=== PATIENT | female | born 1970 | race Caucasian/White ===

== ENCOUNTER → 2017-02-16 | Outpatient (CLI) | payer OTHER ==
[~2017-02-16] MED LIST: HYDR-5688 PO; WARF5TAB90 PO
--- NOTE | 2017-02-16 18:41 | DIAGNOSTIC IMAGING REPORT ---
MRI OF THE RIGHT ANKLE WITHOUT IV CONTRAST CLINICAL HISTORY: Right ankle pain. Tendinitis. COMPARISON STUDY: Radiographs of the right foot dated 09/26/2016. TECHNIQUE: MRI of the right ankle is performed using various T1 and T2-weighted sequences in the axial, sagittal, coronal planes. IV contrast was not administered for this examination. FINDINGS: There is no MRI evidence of fracture involving the right ankle. There are mild foci of marrow edema identified within the talar dome as well as the medial aspect of the talus typical in appearance for degenerative change. Mild arthritic change is also seen within the superior calcaneus. There is no ankle joint effusion. An os trigonum is incidentally noted. The Achilles tendon appears mildly thickened and is normal in signal intensity. There is mild fluid posterior to the Achilles tendon. The tibialis posterior tendon is markedly thickened consistent with tendinopathy. There is surrounding fluid consistent with tenosynovitis. There is high-grade partial-thickness tearing of the tibialis posterior tendon as it crosses the ankle joint. There is surrounding soft tissue edema. The flexor hallucis longus and flexor digitorum longus tendons appear intact. The peroneal tendons appear maintained. The anterior tendons also appear intact. There is mild fluid around the proximal tibialis anterior suggesting tendinitis. There has been age indeterminant rupture of the anterior talofibular and anterior tibiofibular ligaments. There is thickening of the medial band of the partially imaged plantar fascia with surrounding edema consistent with plantar fasciitis. There is mild marrow edema identified within the adjacent calcaneus as well as a large plantar heel spur. There is evidence of normal fat within the sinus tarsi. The deltoid ligament is intact as imaged. IMPRESSION: 1. There is tendinopathy and tendonitis involving the tibialis posterior tendon with high-grade partial-thickness tearing as it crosses the ankle joint. Some fibers appear to remain intact. Overlying soft tissue edema is observed. 2. There is also likely mild tendonitis involving the tibialis anterior tendon. 3. Question mild Achilles tendinopathy and paratenonitis. Clinical correlation will be required. 4. There is evidence of plantar fasciitis involving the medial band of the plantar fascia. A large plantar heel spur is noted. 5. Arthritic change with mild marrow edema is noted in the talus and calcaneus. 6. There is age indeterminant and likely chronic tearing of the anterior talofibular and anterior tibiofibular ligaments. Dictated: 02/16/2017 4:47 PM Transcribed: 02/16/2017 6:40 PM [email or web address] Electronically signed by: Oral Miller M.D. 02/16/2017 6:45 PM Dictated Date/Time: 02/16/2017 4:47 PM
== END | disposition home or self-care (01) ==
LOC: C.MRI 14:58
PROVIDERS: ATTEND Podiatrist
DX: M76.821 Posterior tibial tendinitis, right leg (principal); M79.671 Pain in right foot; M21.41 Flat foot [pes planus] (acquired), right foot; M77.31 Calcaneal spur, right foot; M19.071 Primary osteoarthritis, right ankle and foot; S93.491A Sprain of other ligament of right ankle, initial encounter; S93.431A Sprain of tibiofibular ligament of right ankle, initial encounter; X58.XXXA Exposure to other specified factors, initial encounter

== ENCOUNTER 2024-09-21 06:37 | Observation (INO) ==
--- NOTE | 2024-08-16 10:07 | PAT Medication Instructions ---
Medication Instructions Date of Service August 16, 2024 Home Medications acetaminophen 325 mg tablet 325 mg PO QID PRN ibuprofen 200 mg capsule 200 mg PO Q6H PRN naproxen sodium 220 mg tablet (Aleve) 220 mg PO BID PRN semaglutide 0.25 mg or 0.5 mg (2 mg/3 mL) subcutaneous pen injector (Ozempic) 0.5 mg subcut WK STOP 7 days before surgery semaglutide 0.25 mg or 0.5 mg (2 mg/3 mL) subcutaneous pen injector (Ozempic) 0.5 mg subcut WK ASK your surgeon for instructions ibuprofen 200 mg capsule 200 mg PO Q6H PRN naproxen sodium 220 mg tablet (Aleve) 220 mg PO BID PRN Take morning of surgery With a small sip of water, OTHERWISE NOTHING TO EAT OR DRINK AFTER MIDNIGHT: acetaminophen 325 mg tablet 325 mg PO QID PRN(if needed) Take evening before surgery acetaminophen 325 mg tablet 325 mg PO QID PRN(if needed) Other Notes If you have any questions please call us at [phone] or [phone] or [phone] or [phone]
--- NOTE | 2024-08-22 10:00 | Anesthesiology Consultation ---
Date of Service August 22, 2024 Assessment & Plan (1) Encounter for pre-operative examination: - check urine test STAT am DOS. - awaiting PCP pre-operative evaluation (Dr. Lauren Lawrence) 09/05/24. PAT testing to be faxed to PCP. - semaglutide instructions: Patient informed at PAT visit to stop 7 days prior to surgery- voiced understanding. - Outpatient joint assessment: Patient is currently scheduled for inpatient pathway. If re-evaluated and patient/surgeon requests outpatient pathway, patient is not ideal candidate for outpatient joint program from anesthesia standpoint. Chart Review Chart Review: Pending: Refer to Additional Notes / Consult section and Patient seen in Pre Admission Testing Teaching & Discussion Pre-Anesthesia Teaching/Discussion Notes: Instructed NPO after midnight before surgery, except medications with 15 cc of water. Medication instructions provided according to the PAT guidelines. History Surgery Operation Date: 09/21/24 07:00 Proposed Procedures p Left Total Knee Arthroplasty - Bobo Torres MD Height/Weight Height: 5 ft 8 in Weight: 130.9 kg Allergies Allergy/AdvReac Type Severity Reaction Status Date / Time No Known Allergies Allergy Unverified 08/15/24 14:02 Medications Home Medications Medication Instructions Recorded Confirmed Last Taken acetaminophen 325 mg tablet 325 mg PO QID PRN Pain 08/15/24 08/15/24 Unknown ibuprofen 200 mg capsule 200 mg PO Q6H PRN Pain 08/15/24 08/15/24 Unknown naproxen sodium 220 mg tablet 220 mg PO BID PRN Pain 08/15/24 08/15/24 Unknown (Aleve) semaglutide 0.25 mg or 0.5 mg (2 0.5 mg subcut WK 08/15/24 08/15/24 Unknown mg/3 mL) subcutaneous pen injector (Ozempic) Past Medical History Medical History (Updated 08/22/24 @ 10:27 by Ada Sinclair PA-C) Hearing loss [id number] TM from infection years ago History of hypertension controlled, stable per pt Hx of deep venous thrombosis (~2014) 2015 right LE, 2 days after hammer toe correction, had also flown 2 weeks prior Hx of diverticulitis of colon one episode-2015 Obesity reason for ozempic Patient denies h/o stroke, seizures, heart attack, heart failure, DM, or blood transfusions. Exercise / Class Metabolic Activity III < 4 Walking/Shop/Light housework (denies chest discomfort or shortness of breath with usual activities) Past Surgical History Surgical History (Updated 08/22/24 @ 10:26 by Ada Sinclair PA-C) Hx of cholecystectomy Hx of colonoscopy Hx of hammer toe correction right Hx of tonsillectomy Hx of wisdom tooth extraction Past Anesthesia History No Hx of Anesthesia Complications and No Family Hx of Anesthesia Complications History of PONV No Hx of PONV and No Hx of Motion Sickness Social History Smoking Status: Current every day smoker Smoking cigarettes per day: 20 per day-advised Do You Dip or Chew Tobacco: No Hx Alcohol Use: No Hx Substance Use: No substance use type: does not use (states did use marijuana last year and had severe adverse effects-states does not want any medical marijuana noted in chart) Review of Systems Snoring, denies witnessed apneas. Patient denies chest pain, shortness of breath, dyspnea on exertion, fever, chills, cough, wheezing, or palpitations. Physical Exam Vital Signs Vitals BP 128/80 P 59 TEMP 98.7 SP02 95% on RA RESP 19 Physical Patient resting comfortably in chair in no acute distress, alert and oriented, responding appropriately throughout visit Full cervical extension range of motion without pain TMD < 3 finger breadths Mallampati Score 3 Dentition: intact, denies chipped or loose teeth, caps/crowns, implants or bridges Lungs: normal respiratory effort. Good air movement, clear throughout to auscultation, no adventitious breath sounds Cardiac: regular rate and rhythm, no murmurs noted Carotid arteries: negative bruit bilat Lab Results Anesthesia Preop Results Results Anesthesia Widget: WBC 7.32 K/ul (4.8-10.8) 08/22/24 Hgb 13.6 g/dl (12.0-16.0) 08/22/24 Hct 40.4 % (37.0-47.0) 08/22/24 Plt 291 K/uL (130-400) 08/22/24 Na 140 mmol/L (136-145) 08/22/24 K 4.2 mmol/L (3.5-5.1) 08/22/24 Cl 106 mmol/L (98-107) 08/22/24 CO2 29 mmol/L (21-32) 08/22/24 BUN 12 mg/dl (6-23) 08/22/24 Creat 0.83 mg/dl (0.6-1.2) 08/22/24 Glucose Level 78 mg/dl (70-99(Fasting)) 08/22/24 PT 10.1 Seconds (9.0-12.0) 08/22/24 PTT 25 Seconds (21-31) 08/22/24 INR 0.9 (0.9-1.1) 08/22/24 Urine Color Yellow 08/22/24 Urine Appearance Clear (Clear) 08/22/24 Urine pH 6.0 (4.5-7.5) 08/22/24 Urine Specific Jay 1.003 (1.000-1.030) 08/22/24 Urine Protein Negative (Negative) 08/22/24 Urine Glucose (UA) Negative (Negative) 08/22/24 Urine Ketones Negative (Negative) 08/22/24 Urine Blood Negative (Negative) 08/22/24 Urine Nitrite Negative (Negative) 08/22/24 Urine Bilirubin Negative (Negative) 08/22/24 Urine Urobilinogen Negative (Negative) 08/22/24 Urine Leukocyte Esterase Negative (Negative) 08/22/24 Blood Type O Negative 08/22/24 Antibody Screen NEGATIVE 08/22/24 Testing Electrocardiogram Date: 08/22/24 NSR, rate 60 bpm Chest X-Ray Date: 08/22/24 No acute cardiopulmonary findings.
--- NOTE | 2024-09-21 05:19 | History & Physical Bridge Note ---
Date of Service September 21, 2024 History & Physical Bridge Note I have examined the patient, reviewed the History & Physical and in the interval since the performance of the History & Physical I have noted the following changes of clinical significance: consent and site verified.no changes noted
[~2024-09-21 06:37] MED LIST changes: +BUPIVACAINE 0.25% PF 30 ML VIAL ONE; +BUPIVACAINE 0.5 % 5 MG/1 ML PF 10ML VIAL ONE; -HYDR-5688 PO; -WARF5TAB90 PO
[2024-09-21] MEDS: LR 500ML BOLUS, THEN 15ML/HR IV SCH (07:08)
[2024-09-21] MEDS: LR 60ML/HR IV SCH (07:09)
[2024-09-21] MEDS ORDERED: ATROPINE SULFATE 0.1 MG/ML 10ML SYR IV PRN (08:25)
[2024-09-21] MEDS ORDERED: ONDANSETRON INJ 2 MG/ML 2 ML VIAL IV PRN (08:25)
[2024-09-21] MEDS ORDERED: fentaNYL citrate PF 100 MCG/2 ML VIAL IV PRN (08:25)
[2024-09-21] MEDS ORDERED: ePHEDrine sulfate 50 MG/ML AMP IV PRN (08:25)
[2024-09-21] MEDS ORDERED: MIDAZOLAM HCL 1 MG/ML 2ML VIAL ONE (08:53)
[2024-09-21] MEDS: TRANEXAMIC ACID 1,000 MG **IV Pre-op IV SCH (09:16)
[2024-09-21] MEDS ORDERED: LIDOCAINE 2% 2 ML VIAL/AMP(20MG/ML) INFIL ONE (09:25)
[2024-09-21] MEDS: ceFAZolin 3000MG 3,000 MG/72.5 ML BAG IV SCH (09:39)
[2024-09-21] MEDS ORDERED: fentaNYL citrate PF 100 MCG/2 ML VIAL ONE (09:46)
[2024-09-21] MEDS ORDERED: KETAMINE HCL 10MG/ML SYR ONE (10:22)
[2024-09-21] MEDS ORDERED: GLYCOPYRROLATE 0.2 MG/ML VIAL ONE (10:23)
[2024-09-21] MEDS: ORTHO JOINT ANESTHETIC ONE (10:23)
[2024-09-21] MEDS: ROPIV 0.5% 246mg, Ketorolac 30mg, EPINEPHrine 0.5mg in NSS INFIL SCH (10:23)
[2024-09-21] MEDS ORDERED: PROPOFOL IV EMULSION 10 MG/ML 20 ML VIAL IV ONE ×2 (10:32→11:21)
[2024-09-21] MEDS: TRANEXAMIC ACID 1,000 MG **IV Intra-op IV SCH (10:54)
--- NOTE | 2024-09-21 11:33 | Post Operative Brief Note ---
Immediate Post Op Note Date of Surgery September 21, 2024 Pre & Post Diagnosis Operation Date: 09/21/24 09:20 <No data on this case meets the specified criteria> Osteoarthritis left knee with varus deformity I identified the patient and participated in the time-out.: Yes Procedure Operation Date: 09/21/24 09:20 <No data on this case meets the specified criteria> Cemented left total knee replacement with tibial extension stem secondary to patient the MRI. Surgeon Bobo Torres MD Pain Coordinator Nehemiahband Estimated Blood Loss 100 Findings Consistent with Post-Op Diagnosis Severe osteoarthritis left knee. Varus deformity. Fluids See anesthesia report Complications None
--- NOTE | 2024-09-21 11:39 | Operative Report ---
Post Operative Report Pre & Post Diagnosis Operation Date: 09/21/24 09:20 <No data on this case meets the specified criteria> Osteoarthritis of the left knee with varus deformity I identified the patient and participated in the time-out.: Yes Procedure Operation Date: 09/21/24 09:20 <No data on this case meets the specified criteria> Cemented left total knee replacement with tibial extension based on high BMI modifier for complex surgery applies 22 Surgeon Bobo Torres MD Endorsement Clerk Rachel Estimated Blood Loss 100 Findings Consistent with Post-Op Diagnosis Severe varus deformity tricompartmental osteoarthritis chronic ACL insufficiency Fluids See anesthesia report Specimens Bone pathology Drains None Complications None Indications Severe pain failed conservative management Description of Procedure After the patient was appropriate notified site verified consent verified antibiotics confirmed has been given the left lower extremity was prepped and draped in his routine fashion. She has a high BMI of 44 tourniquet was applied. Once everything was set prepped and draped she was then exsanguinated rubber bandage and tourniquet inflated to 275 mmHg after exsanguination limb with a rubber Esmarch bandage. Total tourniquet time was 60 minutes. Appropriate incision was made based on body size. Full-thickness flaps raised. Parapatell ar arthrotomy performed. Lateral fluid was evacuated from the knee hypertrophic synovium was excised. Marked osteophytes along the margin of the femur. The ACL was absent the entire notch was closed and with bone this was then all chiseled out. The PCL was identified. Distal femoral seating hole was then made. The PCL was sacrificed tibia subluxated menisci resected. Distal femur was then resected 10 mm proximal tibia 4 mm. The extension gap was excellent with a 10 spacer. Femur was sized to a 6 to tibia to a 6. Appropriate cutting block right to the femur and the anterior posterior, and chamfer cuts then made. The flexion gap was then checked it was excellent. Box cut was then made and the size 6 fit well after the lug holes were made. Tibia was then broached and reamed to a size 6 with the tibial extension on the stem. The revision stem system was utilized with a 30 mm stem extension. This sat well. Fill the canal well. 10 mm spacer was then made everything tracked well with the knee was stable in full extension mid range flexion and full flexion. The patella tracked well. The patella was resected leaving 15 mm and a 35 button seated after the seating holes were made. All implants were then removed Ortho mix injected about the knee the wound was soaked in Betadine for 2 minutes then irrigated and the permanent cemented into position tibia femur patella in that order at 12 minutes the tourniquet was deflated minor bleeding points controlled electrocautery. She received another dose of TXA just prior to deflating to the tourniquet. Once at 14 minutes everything was cleaned out the trial spacer was removed there was no cement removal required the permanent liner was seated and reduced and then the knee closed at 40 degrees of flexion using #2 Vicryl 2-0 Vicryl and standstill clips appropriate dressing was applied including a Shaq Carballo cotton dressing. EBL was assessed at 100 cc or less crystalloid per anesthesia bone pathology pending. DVT prophylaxis with Eliquis starting tomorrow. She also wears stockings and get up soon as her legs wake up. She can be full weightbearing to tolerance. X-rays pending in recovery room. Summary of implants [employer] ATT UNE system. Size 6 femur posterior cruciate substituting size 6 tibial tray revision tray with 30 mm extension on the stem a 10 mm posterior cruciate substituting spacer 35 mm poly on the patella. 2 bags of Palacos G cement. I attest to the content of the Intraoperative Record and any orders documented therein. Any exceptions are noted below.
--- NOTE | 2024-09-21 11:40 | Discharge Summary ---
Date of Service September 22, 2024 Admission HPI Per Admitting Provider Osteoarthritis left knee Principal Diagnosis Osteoarthritis left knee Discharge Data Allergies Allergy/AdvReac Type Severity Reaction Status Date / Time No Known Allergies Allergy Unverified 09/21/24 07:04 Vaccinations None Consultations None Procedures Performed Operation Date: 09/21/24 09:20 Actual Procedures p Left Total Knee Arthroplasty(Left) - Bobo Torres MD Ordered Studies 09/21/24 05:00 US - OR guided needle placemen Routine Hospital Course (1) Status post left knee replacement: Total Time Total Time Spent Total Time Spent (In Minutes): 5 Discharge Plan Discharge Items Patient Disposition: Home - Home Health Services Reason For Visit: Left Knee Osteoarthritis Discharge Diagnosis: Status post left knee replacement cemented Activity: Per Instructions section Lifting: Wait until after follow-up appointment Bathing: Keep incision dry Sexual Activity: Wait until after follow-up appointment Exercise/Sports: Wait until after follow-up appointment Driving/Machine Use: No driving until cleared by Dr. Torres Weightbearing: Full weightbearing Non-emergency contact: Surgeon Call non-emergency contact if: you have any medication questions, your pain is not controlled, your temperature is above 101, your wound has increased redness, your wound has increased drainage and your wound pain has increased Follow-up/Referrals: Aminah Og, [facility] [Physician Sliver Lapper] - 10/06/24 10:30 am Lauren Lawrence MD [Primary Care Provider] - Addtl Attending Provider Instructions: New Medicine: * You will likely be taking one or more of these medications: 1. Percocet - Take, as directed, when you need it, every four to six hours to control your pain. 2. Iron Sulfate - Take 1x each day for the month after surgery to help you replace the blood lost during surgery. 3. Eliquis - Thins your blood to lessen the chance of forming a blood clot. The dose of this is different for each person and is based on your blood tests that are done twice a week. * The most common side effects of pain medicine and iron are nausea and con stipation. If nausea or constipation is too much of a problem or if you have any questions about your new medicines or doses, call [facility] at . We will try to help you manage these issues. "VERY IMPORTANT TO READ AND REVIEW" Blood Clots and Blood Thinning Medicine: * You are given Eliquis during the immediate post-operative period to lessen the risk of blood clots forming in your legs and/or lungs. It is usually given for 4 weeks after surgery. Pain: * The immediate post-operative period after knee replacement surgery is often quite painful. * You are given a prescription for pain medicine. You should take it, as directed, when you need it, especially before physical therapy and before going to bed. Pain that interferes with sleep is very common and can last several months. * You will likely need pain medicine for the first four to six weeks. It will not stop all of the pain. The pain will lessen and as you feel better, you may change to milder pain medicine such as Tylenol. * The most common side effects of pain medicine are nausea and constipation, so don't take more than you need. Physical Therapy: * You will have physical therapy two or three times each week for four to six weeks after your surgery in order to regain your knee range of motion and to retrain your knee to work properly. * It is just as important to make sure you are getting your knee perfectly straight as it is to regain your knee bend. * Taking a pain pill an hour before therapy can help you have a more productive and comfortable therapy session if needed. Home Exercise: * You were shown a series of exercises (heel props, heel slides, etc.) in the hospital. Do these exercises three to four times each day including the exercises you were shown in physical therapy. Walking: * Get up and walk several times each day. For the first four weeks, try not to stand or walk for more than one hour at a time. If you do stand or walk for more than one hour, you will not hurt anything, but your knee and leg will likely swell. * As you feel comfortable, you may change from the walker or crutches to a cane and then to independent walking. SELF CARE INSTRUCTIONS AFTER TOTAL KNEE REPLACEMENT A. You may need to continue a physical therapy program after discharge from the hospital. There are several options available to you. Your doctor will assist you in selecting the best one for you. 1. An out-patient facility 2 to 3 times a week for therapy or home therapy. 2. Continue working on all exercises taught to you in the hospital. Your goals should be to increase bending of your knee to 90 degrees and beyond and to fully straighten your knee. B. You may progress at your own pace from walking with a walker or crutches to a cane; then to no assistive devices. C. Make walking a part of your daily routine. Be up as much as comfortable with rest periods throughout the day. Rest with leg elevation is very important. Use the ice wrap frequently for the first 3-4 weeks. D. There are no restrictions on activities. You may ride in a car, shop, participate in small animal caretaker and all social activities. E. Wear the long elastic stockings (MICHAEL hose) 20 hours a day for six weeks after surgery. They can be removed several times a day for laundering and for a shower. F. Do not place a pillow behind your knee when resting. A pillow at your ankle is okay. G. You may return to previous diet. VERY IMPORTANT TO READ AND REVIEW A. Take Eliquis (blood thinning medication) as directed by your doctor. B. There are a few signs you need to watch for after you are home. Call [facility] if you notice any of the followin. Increased severe knee pain. Some pain is expected especially when you exercise. 2. Increased swelling in your leg or knee; pain or swelling of the calf muscle in either lower leg. 3. Any fluid drainage from the incision. 4. Shortness of breath or chest pain. C. Please call [facility] at if you have any concerns or questions about your operation or recovery. The doctor or his nurse will return your call promptly. D. You must take antibiotics before dental work, bladder, bowel or other surgery. Call the office to obtain a prescription at least 2 days prior to your appointment. * CALL IF INCREASED PAIN, REDNESS, DRAINAGE OR FEVER GREATER THAT 101. * Sutures should be removed 12-14 days after surgery unless you are on chronic steroids, then it will be 14-18 days after surgery. Call your doctor if: * Temperature above 101 degrees F. * Pain not relieved by pain medicine ordered. * Increased drainage or redness from incision. * Notify your doctor with any questions or concerns. MEDICATIONS: * Please take your prescriptions as instructed at your pre-op appointment and/or see medication discharge instructions listed above. * If concerns develop, call your physician's office at . SPECIAL CARE INSTRUCTIONS: * Ice/Elevate as instructed. * Keep dressing clean, dry, intact. * Your surgical extremity may be discolored due to prepping agents used on the skin. A bluish-green tint is a normal variant and should not cause alarm. Call your doctor at [phone] if: * Temperature above 101 degrees * Pain not relieved by pain medicine ordered * There is increased drainage or redness from any incision * You have any unanswered questions, problems or concerns. FOLLOW UP VISIT: * If not already scheduled, please call the office at to schedule a follow-up appointment. Pending Studies at Discharge: Yes Studies:: bone pathology Stand-Alone Forms: [facility], Smoking Cessation Medications and DC Order Prescriptions: No Action acetaminophen 325 mg Tablet 325 mg PO QID PRN (Reason: Pain) ibuprofen 200 mg Capsule 200 mg PO Q6H PRN (Reason: Pain) naproxen sodium [Aleve] 220 mg Tablet 220 mg PO BID PRN (Reason: Pain) Ozempic 0.25 mg or 0.5 mg (2 mg/3 mL) Pen Injector 0.5 mg SUBCUT WK Patient Comments: tuesdays- states may not be taking by the time she has procedure Admission Data Admit Date/Time: 09/21/24 11:47 Attending Provider: Bobo Torres Admit Provider: Bobo Torres Primary Care Provider: Lauren Lawrence
--- NOTE | 2024-09-21 11:40 | Orthopedic Progress Note ---
Date of Service September 21, 2024 Orthopedic Progress Note Patient underwent total knee replacement cemented on the left. She is awake and alert she can move her toes and dorsiflex her ankle to do a straight leg raise activating her quad neurovascular check is returning to normal after her spinal. Wound dressing clean dry and intact x-ray pending. Family contacted.
--- NOTE | 2024-09-21 11:41 | Operative Report ---
Post Operative Report Pre & Post Diagnosis Operation Date: 09/21/24 09:20 Pre-Op Diagnosis: Left Knee Osteoarthritis Post-Op Diagnosis: Left Knee Osteoarthritis I identified the patient and participated in the time-out.: Yes Procedure Operation Date: 09/21/24 09:20 Actual Procedures p Left Total Knee Arthroplasty(Left) - Bobo Torres MD Surgeon Bobo Torres M.D. Straddle Bug Driver Rachel Estimated Blood Loss 100 Findings Consistent with Post-Op Diagnosis Specimens bone and soft tissue Anesthesia Type MAC Spinal [facility] Description of Procedure Patient was taken to the operating room and placed under IV sedation with spinal anesthesia and a peripheral nerve block. Time out was performed. She was given 3 g of IV Ancef and 1 g of IV TXA preoperatively. I was present during the entire case. Please see Dr. Torres's operative report for further details regarding today's procedure. I assisted with positioning, tissue retraction, trialing of implants, implantation of hardware, cementing, closure and dressings. Patient was awakened and taken to the recovery room in stable condition. I attest to the content of the Intraoperative Record and any orders documented therein. Any exceptions are noted below.
--- NOTE | 2024-09-21 11:56 | Orthopedic Progress Note ---
Date of Service September 21, 2024 Orthopedic Progress Note Postop check status post a left total knee replacement. Just she is doing well denies chest pain shortness breath fever chills nausea or headache. She is awake and alert. Vital signs are stable she is afebrile. Neurovascular check from a secondary reveals active quad function active ankle dorsi and plantarflexion. Wound dressing clean dry and intact. Postop x-rays AP and lateral look excellent. Assessment doing well status post left total knee replacement continue with care pathway. Initiate anticoagulation tomorrow.
--- NOTE | 2024-09-21 12:15 | Anesthesiology Progress Note ---
Date of Service September 21, 2024 Anesthesia Post Procedure Vital Signs Vital Signs: Temp Pulse Pulse Resp BP Pulse Ox O2 Del Method 09/21/24 12:05 36.6 C 60 16 163/96 H 96 Room Air 09/21/24 11:55 55 L 15 128/90 95 Room Air 09/21/24 11:45 60 14 120/71 97 Room Air 09/21/24 11:37 36.1 C L 68 14 118/82 97 Room Air 09/21/24 07:00 36.8 C 63 18 121/82 94 Room Air Transfer of Care Handoff Completed per policy Notes Mental Status: alert / awake / arousable Patient Amnestic to Procedure: Yes Nausea / Vomiting: adequately controlled Pain: adequately controlled Airway Patency, RR, SpO2: stable & adequate BP & HR: stable & adequate Hydration State: stable & adequate Neuraxial Anesthesia: was administered and sensory block is resolving Anesthetic Complications: no major complications apparent and Pt Satisfied with anesthetic care
--- NOTE | 2024-09-21 12:28 | XRay Report ---
XR knee LT 1 or 2V routine CLINICAL HISTORY: S/P L TKA COMPARISON: Left tibia and fibula radiographs May 12, 2024. Left knee radiographs April 27, 2024. FINDINGS: Alignment of the total left knee arthroplasty is anatomic. There is no periprosthetic frac ture or unexpected radiopaque foreign body. There are skin benjamin. IMPRESSION: Expected findings following total left knee arthroplasty. ACT 112: Negative or not required by law. Electronically signed by: Rah Javier M.D. 09/21/2024 12:26 PM
--- OUTSIDE RECORDS SUMMARY | 2024-09-21 12:32 | External Medical Summary | Summary of Care ---
Author Name Unknown Organization [facility] Address [address] [facility] [place] [address] Phone [phone] Care Team Providers Care Cloud Services Architect Name Role Phone Lauren Lawrence MD Primary Care Provider [phone] Reason for Visit * Reason Comments Physical-Exam Encounter Details Date Type Department Care Team (Latest Contact Info) Description 09/05/2024 11:00 AM EST Office Visit [facility] [address] [facility] [place] [address] Lauren Lawrence MD [address] [facility] [place] [address] Pre-op evaluation*; Bilateral primary osteoarthritis of knee; History of DVT (deep vein thrombosis); Class 3 severe obesity due to excess calories with body mass index (BMI) of 45.0 to 49.9 in adult, unspecified whether serious comorbidity present (HCC); Tobacco use disorder Allergies No known active allergiesdocumented as of this encounter (statuses as of 09/05/2024) Medications Naproxen Sodium 220 MG Oral Tablet Take 1 Tablet by mouth every 8 hours as needed for Pain. Active Acetaminophen ER 650 MG Oral Tablet Extended Release Take 1 Tablet by mouth every 8 hours as needed. Active Nicotine 21 MG/24HR Transdermal Patch 24 Hour (Nicoderm CQ)Indications:T obacco use disorder One 21 mg patch daily for 6 wks; then one 14 mg patch daily for 2 wks; then one 7 mg patch daily for 2 wks. Remove old patch daily 42 Patch 1 4 10/17/19 25 Active Nicotine 14 MG/24HR Transdermal Patch 24 Hour (Nicoderm CQ)Indications:T obacco use disorder One 14 mg patch daily for 2 wks; then one 7 mg patch daily for 2 wks. Remove old patch daily Do not start before October 17, 2024. 14 Patch 2 5 10/31/19 25 Active Nicotine 7 MG/24HR Transdermal Patch 24 Hour (Nicoderm CQ)Indications:T obacco use disorder One 7 mg patch daily for 2 weeks; Remove old patch daily; and then stop. 14 Patch 1 4 Active Nicotine Polacrilex 4 MG Mouth/Throat Lozenge (Nicorette)Indic ations:Tobacco use disorder Administer 1 Lozenge to inside of cheek every 2 hours. 108 Lozenge 1 4 Active documented as of this encounter (statuses as of 09/05/2024) Active Problems Problem Noted Date Diagnosed Date Bilateral primary osteoarthritis of knee 024 Class 3 severe obesity due t o excess calories with body mass index (BMI) of 45.0 to 49.9 in adult 04/04/2024 Burning tongue syndrome 02/16/2023 History of DVT (deep vein thrombosis) 12/28/2017 Tobacco use disorder 12/28/2017 Spinal stenosis of lumbar re gion with neurogenic claudication 12/10/2017 documented as of this encounter (statuses as of 09/05/2024) Resolved Problems Problem Noted Date Diagnosed Date Resolved Date Primary osteoarthritis of right knee 11/12/2020 09/05/2024 Lumbar degenerative disc disease 12/10/2017 02/16/2023 Body mass index (BMI) of 45. 0 to 49.9 in adult 07/06/2017 09/19/2021 Overview: Per Obesity protocol #1 DVT (deep venous thrombosis) 08/29/2015 12/28/2017 Irregular menses 12/28/2017 documented as of this encounter (statuses as of 09/05/2024) Immunizations Name Administration Dates Next Due TDAP (age 10 and older)(Boostrix) 04/03/2014 documented as of this encounter Social History Tobacco Use Types Packs/Day Years Used Date Smoking Tobacco: Every Day Cigarettes 1 20 Passive Smoke Exposure: Never Smokeless Tobacco: Never Alcohol Use Standard Drinks/Week Comments No 0 (1 standard drink = 0.6 oz pur e alcohol) PHQ-2 Answer Date Recorded PHQ Adult Total Score 0 04/22/2021 Hunger Vital Sign Answer Date Recorded Worried About Running Out of Food in the Last Ye ar Never true 05/07/2020 Ran Out of Food in the Last Year Never true 05/07/2020 Comments No Sex and Gender Information Value Date Recorded Sex Assigned at Female 02/25/2019 3:38 PM EDT Legal Sex Female 5:59 AM EST Gender Identity Female 02/25/2019 3:38 PM EDT Sexual Orientation Straight 02/25/2019 3: 38 PM EDT 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 Not on file Not on file Not on file documented as of this encounter Last Filed Vital Signs Vital Sign Reading Time Taken Comments Blood Pressure 112/84 09/05/2024 10:46 AM EST Pulse 77 09/05/2024 10:46 AM EST Temperature 36.6 C (97.8 F) 09/05/2024 1 0:46 AM EST Respiratory Rate 18 09/05/2024 10:4 6 AM EST Oxygen Saturation - - Inhaled Oxygen Concentration - - Weight 132.5 kg (292 lb 0.6 oz) 024 10:46 AM EST Height - - Body Mass Index 47.14 05/30/2024 11:00 AM EDT documented in this encounter Progress Notes * Lauren Lawrence MD - 09/05/2024 10:48 AM EST Images from the original note were not included. Pre-Operative Medical Evaluation Procedure Information Type of Surgery: Left total knee arthoplasty Referring Physician / Surgeon: Dr. Torres Date of procedure: 09/21/24 Brief History of Present Illness: Patient presents today for pre-operative evaluation. She has no acute concerns. She denies fever, chills, chest pain, shortness of breath, palpitations, edema, abdominal pain, nausea, vomiting, dizziness, headaches, syncope, or easy bleeding or bruising. Was previously on Ozempic for about a year but was unable to get a refill. Was doing well on medication and losing weight but since stopping has gained 15lb. Has been unable to get in to see weight management. She is smoking 1PPD. Has stopped previously using Chantix but developed nasal sores. Medical History Problem List: Bilateral primary osteoarthritis of knee (06/13/2024) Class 3 severe obesity due to excess calories with body mass index (BMI) of 45.0 to 49.9 in adult (HCC) (04/04/2024) Burning tongue syndrome (02/16/2023) History of DVT (deep vein thrombosis) (12/28/2017) Tobacco use disorder (12/28/2017) Lumbar degenerative disc disease (12/10/2017) Spinal stenosis of lumbar region with neurogenic claudication (12/10/2017) Irregular menses Current Medications [START ON 10/17/2024] Nicotine 14 MG/24HR Transdermal Patch 24 Hour (Nicoderm CQ), One 14 mg patch daily for 2 wks; then one 7 mg patch daily for 2 wks. Remove old patch daily Do not start before October 17, 2024. Nicotine 21 MG/24HR Transdermal Patch 24 Hour (Nicoderm CQ), One 21 mg patch daily for 6 wks; then one 14 mg patch daily for 2 wks; then one 7 mg patch daily for 2 wks. Remove old patch daily Nicotine 7 MG/24HR Transdermal Patch 24 Hour (Nicoderm CQ), One 7 mg patch daily for 2 weeks; Remove old patch daily; and then stop. Nicotine Polacrilex 4 MG Mouth/Throat Lozenge (Nicorette), 4 mg, Buccal, Q2H Acetaminophen ER 650 MG Oral Tablet Extended Release, 650 mg, Oral, Q8H PRN Naproxen Sodium 220 MG Oral Tablet, 220 mg, Oral, Q8H PRN Allergies: Patient has no known allergies. Past Medical History: has a past medical history of History of DVT (deep vein thrombosis), HTN (hypertension) (02/16/2023), Irregular menses, Obesity, Primary osteoarthritis of right knee (11/12/2020), Spinal stenosis of lumbar region with neurogenic claudication (12/10/2017), and Tobacco use disorder (12/28/2017). Past Surgical History: has a past surgical history that includes remove gallbladder, explore duct (08/1993); Colonoscopy, Diagnostic (Rectum) (07/30/2015); Inject Dx/Ther Substance Interlaminar Lumbar/Sacral W Image Guide (12/28/2017); Inject Dx/Ther Substance Interlaminar Lumbar/Sacral W Image Guide (01/18/2018); and breast biopsy (Left, 01/25/2018). Social History: reports that she has been smoking cigarettes. She has a 20 pack-year smoking history. She has neverbeen exposed to tobacco smoke. She has never used smokeless tobacco. She reports that she does not drink alcohol and does not use drugs. Family History: family history includes Diabetes in her brother and father; Heart Disorder in her father; Hypertension in her father, mother, and sister. Anesthesia History Type of Anesthesia: General Endotracheal Anesthesia reaction: No History of surgical complications: None Personal history of venous thromboembolic disease: Had DVT after surgery on toe and week prior had flown to [place] and back Physical Exam Vitals: 09/05/24 1046 Temp: 97.8 F (36.6 C) Pulse: 77 Resp: 18 BP: 112/84 General: Well-appearing, no acute distress HENT: Head is normocephalic and atraumatic, no pharyngeal erythema, nose normal, ear canals normal and tympanic membranes clear bilaterally Eyes: No conjunctival injection, no scleral icterus, EOMI, PERRLA Cardiovascular: Regular rate and rhythm, no murmur Respiratory: Good respiratory effort, breath sounds equal and clear to auscultation bilaterally Abdomen: Soft, non-distended, non-tender, normoactive bowel sounds Extremities: No edema Skin: Warm and dry Neurological: Alert and oriented, no focal deficits noted Psychiatric: Appropriate mood and affect Labs reviewed and are significant for: BMP from 08/22/24 unremarkable EKG by my review is significant for: N/A Surgical Risk Scoring Revised Cardiac Risk Index (RCRI) High-risk type of surgery (examples include vascular and any open intraperitoneal or intrathoracic procedures): 0=No History of ischemic heart disease (history of myocardial infarction or positive exercise test, current compliant of chest pain considered to be secondary to myocardia ischemia, use of nitrate therapy, or ECG with pathological Q waves; do not count prior coronary revascularization procedure unless one of the other criteria for ischemic heart disease is present): 0=No History of heart failure: 0=No History of cerebrovascular disease: 0=No Diabetes mellitus requiring treatment with insulin: 0=No Preoperative serum creatinine >2.0 mg/dL (177 micromol/L): 0=No Pt has revised cardiac index score of: No Risk Factors- 0.4% (95% CI: 0.1-0.8) Screening for Obstructive Sleep Apnea (STOP-BANG) Do you Snore loudly? 1=Yes Do you often feel Tired, Fatigued, or Sleep? 0=No Has anyone Observed you Stop Breathing or Choking/Gasping during sleep? 0=No Do you have or are you being treated for High Blood Pressure? 0=No BMI over 35? 1=Yes Age older than 50? 1=Yes Neck size large? (For males - 17 inches or larger, For females - 16 inches or larger) 1=Yes Male? 0=No Score 0-2:low risk ESTHER, 3-4: intermediate risk of ESTHER, 5-8: high risk ESTHER 4 Assessment and Plan Pre-op evaluation Bilateral primary osteoarthritis of knee History of DVT (deep vein thrombosis) Patient states surgeon aware of history, have discussed DVT prophylaxis Class 3 severe obesity due to excess calories with body mass index (BMI) of 45.0 to 49.9 in adult, unspecified whether serious comorbidity present (HCC) Will discuss GLP-1 at October follow-up appointment Tobacco use disorder Strongly encouraged to quit smoking prior to surgery. Rx sent for nicotine patches and lozenges. - Nicotine 21 MG/24HR Transdermal Patch 24 Hour (Nicoderm CQ); One 21 mg patch daily for 6 wks; then one 14 mg patch daily for 2 wks; then one 7 mg patch daily for 2 wks. Remove old patch daily - Nicotine 14 MG/24HR Transdermal Patch 24 Hour (Nicoderm CQ); One 14 mg patch daily for 2 wks; then one 7 mg patch daily for 2 wks. Remove old patch daily Do not start before October 17, 2024. - Nicotine 7 MG/24HR Transdermal Patch 24 Hour (Nicoderm CQ); One 7 mg patch daily for 2 weeks; Remove old patch daily; and then stop. - Nicotine Polacrilex 4 MG Mouth/Throat Lozenge (Nicorette); Administer 1 Lozenge to inside of cheek every 2 hours. Functional Assessment They are able to walk up a flight of stairs and walk two blocks at a moderate pace. The patient's functional status is good (greater than 4 METS). Surgical Risk Assessment Patient is low medical risk for the listed procedure. Medication adjustments: None Additional consults or testing: None I spent a total of 20-29 minutes (exact time 22 mins) on the date of service in preparation, delivery, and documentation of the care provided to Humaira Murray excluding any time spent in the performance of separately billed services or time spent by another provider/QHP. documented in this encounter Nursing Notes * Maya Harris LPN - 09/05/2024 10:44 AM EST Humaira Murray presents for pre op physical exam. Medications & HM reviewed. Left knee replacement 09/21/24 documented in this encounter Plan of Treatment Upcoming Encounters Date Type Department Care Team (Late st Contact Info) Description 10/17/2024 11:40 AM EST Office Visit Family [facility] [address] [place] [address] Lauren Lawrence MD [address] [place] [address] Scheduled Procedures Name Priority Associated Diagnoses Date/Ti me COLONOSCOPY FLEXIBLE PROXIMAL DIAGNOSTIC Recall Colon cancer screening Health Maintenance Due Date Last Done Comments Pneumococcal Vaccine: Pediatrics (0 to 5 Years) and At-Risk Patients (6 to 64 Years) (1 of 2 - PCV) 1976 Hepatitis C Screening 1988 Hepatitis B Vaccine (1 of 3 - 19+ 3-dose series) 1989 HPV/Co-Test 2000 Cologuard 2015 Fecal Occult Blood Test 2015 Sigmoidoscopy 2015 Zoster Vaccines (1 of 2) 2020 Depression Screening 04/22/2022 04/22/2021, 04/16/20 15 DTap/Tdap Vaccines (2 - Td or Tdap) 04/03/2024 04/03/2014 COVID-19 Vaccine (1 - season) 2024 Influenza Vaccine (FLU shot) (#1) 2024 Cervical Cancer Screening 08/12/2024 Pap Smear 08/12/2024 08/12/2021, 12/04, 05/01/2014, Additional history exists Mammogram 05/02/2025 05/02/2024, 12/04, 12/22/2022, Additional history exists Colonoscopy 07/30/2025 07/30/2015 Colorectal Cancer Screening 07/30/2025 Diabetes Screening 08/22/2027 08/22/2024, 0 04/04/2024, 04/04/2024, Additional history exists Lipid Panel 04/04/2029 04/04/2024, 02/02, 11/07/2019, Additional history exists Lung Cancer Screening Completed 12/15/2022, 022 HPV (Gardasil) Vaccine Aged Out No lo nger eligible based on patient's age to complete this topic MENINGOCOCCAL (MENACTRA/MENVEO) Aged Out No longer eligible based on patient's age to complete this topic documented as of this encounter Medical Devices Not on filedocumented as of this encounter Visit Diagnoses Diagnosis Pre-op evaluation- Primary Preoperative examination, unspecified Bilateral primary osteoarthritis of knee History of DVT (deep vein thrombosis) Personal history of venous thrombosis and embolism Class 3 severe obesity due to excess calories with body mass index (BMI) of 45.0 to 49.9 in adult, unspecified whether serious comorbidity present (HCC) Tobacco use disorder documented in this encounter Care Teams Cloud Services Architect Relationship Specialty Start Date End Date Lauren Lawrence MD [address] [place] [address] PCP - General Family Medicine 04/04/24 documented as of this encounter
--- OUTSIDE RECORDS SUMMARY | 2024-09-21 12:32 | External Medical Summary | Continuity of Care Document ---
Author Name Unknown Organization [facility] [address] [address] Address [facility] [place], [place] [id number] Encounter PS FINNBR [id number] Date(s): 08/29/24 - 08/29/24 [facility] [address] [facility] [address] [facility] [address] [place] [address], [address] [address] Encounter Diagnosis S/P total knee replacement using cement(Discharge Diagnosis) - 08/29/24 Discharge Disposition: Home or Self Care Attending Physician: ÁNGEL Brian, Yo Chambers Referring Physician: MD Brian, Bobo Dorado Allergies, Adverse Reactions, Alerts No Known Medication Allergies Medications Ozempic (1 mg dose) 4 mg/3 mL subQ pen Start: 06/13/24 8:24:00 AM EDT, 0.5 mg =, subQ, q7days, Disp# 3 mL Start Date: 06/13/24 Status: Ordered Mental Status 08/29/24 Barriers to Learning one year None evide nt Mandatory Health Literacy Documentation Yes Health Literacy Communication Barriers N ever Primary Language Croatian Problem List Condition Confirmation Course Effective Dates Status H ealth Status Informant Bilateral primary osteoarthritis of knee Confirmed Active Diagnosis Diagnosis Type Effective Dates Health Status Clinical Service Informant S/P total knee replacement using cement Discharge Diagnosis 08/29/24 Non-Specified Vital Signs Most recent to oldest [Reference Range]: 1 Height 162.8 cm (08/29/24 9:39 AM) Patient Weight 132.3 kg (08/29/24 9:39 AM) Body Mass Index 49.92 kg/m2 (08/29/24 9:39 AM) Heart Rate 70 bpm (08/29/24 9:39 AM) Blood Pressure 142/90mmHg (08/29/24 9:39 AM) Cuff Pulse Pressure 52 mmHg (08/29/24 9:39 AM) Social History Social History Type Response Smoking Status Current every day he mary smoker Sex Female Sex Representation Female (finding) Pre-OP H & P * ÁNGEL Brian Cory D: PERFORM, MODIFY, MODIFY Event Display: Pre-OP H & P Authored Date: [id number] PRE-OPERATIVE HISTORY AND PHYSICAL Name: EKTA CHOWDHURY Patient Number: [id number] : 1970 Date of Service: 08/29/2024 PRE-OP Diagnosis: Left knee DJD Planned Procedure: Left knee total knee arthroplasty Chief Complaint: Left knee pain History of Present Illness (including history relevant to procedure): This 54-year-old female presents today for her preoperative history and physical. She is scheduled to undergo a left knee total knee arthroplasty with Dr. Torres on 09/21/2024. The patient has had bilateral knee pain, left greater than right, for over 3 years. Pain has become worse with time. She initially did well with viscosupplementation injections and activity modification as well as oral pain medication, but it isno longer helping. Pain is worse with ambulation. It is affecting her ADLs. She elects to proceed with surgical intervention in hopes of improving her pain and function. Preoperative imaging has beenobtained. She denies any numbness or tingling. Also denies any significant loss of motion. She has been using a GLP-1 to assist with weight loss and states she has lost 50 to 60 pounds over the last several months. She also states there is a history of previous right leg DVT after previous right foot surgery. Review Of Systems: A total of 10 systems were reviewed and are significant only for below stated conditions Family history: Noncontributory. Social history: The patient is . Employed as a [employer]ist. Positive tobacco use, no EtOHuse. Past Medical History: Problems: Bilateral primary osteoarthritis of knee Obesity History of DVT right leg Procedure History Procedure Procedure Date Comments Tympanostomy Right foot surgery Allergies and Sensitivities: No Known Medication Allergies Current Home Meds: (Last Updated 08/29 09:38) semaglutide (Ozempic (1 mg dose) 4 mg/3 mL subQ pen) 0.5 mg subQ q7days Vitals: Last Updated 08/29/24 09:39 Weights: Last Updated 08/29/24 09:39 Date Temp Pulse BP RR SpO2 FIO2 Date Wt(kg) Wt(lb) 08/29 09:39 70 142/90 08/29 09:39 132.3 291 08/29 09:39 132.3 291 24 Hr Tmax: No Data Available Initial Wt: 08/29 132.3 kg 291 lb Physical Exam: (relevant to the procedure, including heart and lung evaluation) General: Well-developed, well-nourished, middle-aged female, in no acute distress. Sitting in a chair. Alert and oriented. Obese. HEENT: Normocephalic, atraumatic. Eyes PERRLA, EOMI. Nares patent bilaterally without nasal drainage. Oropharynx with moist oral mucosa. Good dentition. Neck: No JVD. Cardiac: RRR. No MGR. Peripheral pulses are 2+. Lungs: Clear to auscultation bilaterally. No crackles, rhonchi, or wheezing. Good air movement. Abdomen: Obese. Bowel sounds present x 4. Soft nontender. No organomegaly. No masses. Extremities: Left knee evaluation reveals a varus positioning. She has full terminal extension. Flexion to around 115 degrees. Strength is 5/5 with fair quad tone. Stable collateral ligaments. She has focal discomfort with palpation over the medial and lateral joint lines, with medial being worse. No palpable deficit in the patellar tendon or quadriceps tendon. Ambulatory today with an antalgic gait. Neuro: Gross sensation is intact across both lower extremities by soft touch. Skin: Warm dry with good turgor. No intra-articular effusion. Studies of radiology results (relevant to the procedure): Radiographic imaging previously obtained of the left knee shows end-stage DJD of all 3 compartments, worst in the medial compartment. Periarticular osteophytes, subchondral sclerosis, and joint space loss are all present. ASSESSMENT: Left knee end-stage DJD Plan: Approximately 30 minutes was spent with the patient reviewing operative procedure, postoperative recovery, physical therapy requirements, and medication use. Postoperative prescriptions for Percocet 5/325mg and Eliquis 2.5 mg will be sent to her pharmacy upon discharge from the hospital. Anticipate discharge to home with home services for 2 weeks and then outpatient PT. She already has a walker and cane. Prescription was provided for bedside commode. She has already attended PT and had her lab work, EKG, and chest x-ray obtained. These are all unremarkable. She is scheduled to see her PCP next week for medical clearance. PDMP was checked and there are no concerning findings. She is currently asymptomatic of any COVID-19 or influenza symptoms. This dictation has been completed using Rapt text voice recognition software. Grammatical errors, omissions, insertions, and misspellings may be present due to the limitations of the software. Electronic Signature on File Electronically Reviewed/Signed by: Yo Brian PA-C Author Signature Dt/Tm:08/29/2024 06:04 PM Division of Sports Medicine Electronically Reviewed/Signed by: Bobo Torres MD Cosigner Signature Dt/Tm: 08/29/2024 06:08 PM Hospice Patient Care Secretary for Clinical Affairs, [facility] Dimitrios Professor in Orthopaedics [employer] Supervisor, [facility] CDS
--- OUTSIDE RECORDS SUMMARY | 2024-09-21 12:32 | External Medical Summary | Summary of Care ---
Author Name Unknown Organization [facility] Address [address] [facility] [place] [address] Phone [phone] Care Team Providers Care Director Underwriter Sales Name Role Phone Lauren Lawrence MD Primary Care Provider [phone] Encounter Details Date Type Department Care Team (Late st Contact Info) Description 08/25/2024 Orders Only Family Practice [facility] [address] [place] [address] Lauren Lawrence MD [address] [place] [address] Allergies No known active allergiesdocumented as of this encounter (statuses as of 08/25/2024) Medications Naproxen Sodium 220 MG Oral Tablet Take 1 Tablet by mouth every 8 hours as needed for Pain. Active Acetaminophen ER 650 MG Oral Tablet Extended Release Take 1 Tablet by mouth every 8 hours as needed. Active documented as of this encounter (statuses as of 08/25/2024) Active Problems Problem Noted Date Diagnosed Date Class 3 severe obesity due t o excess calories with body mass index (BMI) of 45.0 to 49.9 in adult 04/04/2024 Burning tongue syndrome 02/16/2023 Primary osteoarthritis of right knee 11/12/2020 History of DVT (deep vein thrombosis) 12/28/2017 Tobacco use disorder 12/28/2017 Spinal stenosis of lumbar re gion with neurogenic claudication 12/10/2017 documented as of this encounter (statuses as of 08/25/2024) Resolved Problems Problem Noted Date Diagnosed Date Resolved Date Lumbar degenerative disc disease 12/10/2017 02/16/2023 Body mass index (BMI) of 45. 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 Not on file Not on file documented as of this encounter Plan of Treatment Upcoming Encounters Date Type Department Care Team (Late st Contact Info) Description 09/05/2024 11:00 AM EST Office Visit [facility] [address] [place] [address] Lauren Lawrence MD [address] [place] [id number] 10/17/2024 11:40 AM EST Office Visit [facility] [place] [address] [place] [address] Lauren Lawrence MD [address] [place] [address] Scheduled Procedures Name Priority Associated Diagnoses Date/Ti [...] Td or Tdap) 04/03/2024 04/03/2014 COVID-19 Vaccine ( - season) 2024 Influenza Vaccine (FLU shot) (#1) 2024 Cervical Cancer Screening 08/12/2024 Pap Smear 08/12/2024 08/12/2021, 12/04, 05/01/2014, Additional history exists Mammogram 05/02/2025 05/02/2024, 12/04, 12/22/2022, Additional history exists Colonoscopy 07/30/2025 07/30/2015 Colorectal Cancer Screening 07/30/2025 Diabetes Screening 04/04/2027 08/22/2024, 0 04/04/2024, 04/04/2024, Additional history exists [...] Not on filedocumented as of this encounter Procedures Procedure Name Priority Date/Time Associated Diagnosis Comments XR CHEST 2 VIEWS Routine 08/22/2024 CHEMISTRY-OUTSIDE Routine 08/22/2024 documented in this encounter Results * CHEMISTRY-OUTSIDE (08/22/2024) Not all results display below - see scan for full detail OUTSIDE LAB (SEE SCANNED REPORT) Comment:SCAN INCLUDES: UA, P T/INR, PTT, PTTR, BMP, CBCD CREATININE 0.83 0.6 - 1.2 MG/DL OUTSIDE LAB (SEE SCANNED REPORT) EGFR 83.72 OUTSIDE LA B (SEE SCANNED REPORT) POTASSIUM 4.2 3.5 - 5.1 MMOL/L OUTSIDE LAB (SEE SCANNED REPORT) GLUCOSE 78 70 - 99 MG/DL OUTSIDE LAB (SEE SCANNED REPORT) HOURS FASTING OUTSID E LAB (SEE SCANNED REPORT) TRIGLYCERIDES-OU TSIDE LAB OUTSIDE LAB (SEE SCANNED REPORT) CHOLESTEROL-OUTS LUIS LAB OUTSIDE LAB (SEE SCANNED REPORT) HDL-OUTSIDE LAB OUTS LUIS LAB (SEE SCANNED REPORT) CHOL/HDL RATIO-OUTSIDE LAB OUTSIDE LAB (SEE SCANNED REPORT) LDL (CALCULATED)-OUT SIDE LAB OUTSIDE LAB (SEE SCANNED REPORT) LDL (DIRECT MEASURE)-OUTSIDE LAB OUTSIDE LAB (SEE SCANNED REPORT) HEMOGLOBIN, W2T-CQBGXUS LAB OUTSIDE LAB (SEE SCANNED REPORT) PHOSPHORUS-OUTSI DE LAB OUTSIDE LAB (SEE SCANNED REPORT) PTH-OUTSIDE LAB OUTS LUIS LAB (SEE SCANNED REPORT) MICROALBUMIN RATIO-OUTSIDE LAB OUTSIDE LAB (SEE SCANNED REPORT) PROTEIN, UA-OUTSIDE LAB NEGATIVE NEGATIVE OUTSIDE LAB (SEE SCANNED REPORT) HGB 13.6 12.0 - 16.0 G/DL OUTSIDE LAB (SEE SCANNED REPORT) 08/22/2024 us Bobo Torres MD LABORATORY Fi nal Result OUTSIDE LAB (SEE SCANNED REPORT) * XR CHEST 2 VIEWS (08/22/2024) Anatomical Region Laterality Modality Chest Other 08/22/2024 us Bobo Torres MD RADIOLOGY (RAD GEN ERAL) Final Result documented in this encounter Care Teams Director Underwriter Sales Relationship Specialty Start Date End Date Lauren Lawrence MD [address] [place] [address] PCP - General Family Medicine 04/04/24 documented as of this encounter
--- OUTSIDE RECORDS SUMMARY | 2024-09-21 12:32 | External Medical Summary | Summary of Care ---
Author Name Unknown Organization [facility] Address [address] [facility] [place] [address] Phone [phone] Care Team Providers Care Position Description Manager Name Role Phone Lauren Lawrence MD Primary Care Provider [phone] Reason for Visit * Reason Onset Date Comments Health Maintenance 08/26/2024 Encounter Details Date Type Department Care Team (Late st Contact Info) Description 08/26/[address] [facility] [address] [facility] [place] [id number] Lauren Lawrence MD [address] [facility] [place] [id number] Health Maintenance Allergies No known active allergiesdocumented as of this encounter (statuses as of 08/26/2024) Medications Naproxen Sodium 220 MG Oral Tablet Take 1 Tablet by mouth every 8 hours as needed for Pain. Active Acetaminophen ER 650 MG Oral Tablet Extended Release Take 1 Tablet by mouth every 8 hours as needed. Active documented as of this encounter (statuses as of 08/26/2024) Active Problems Problem Noted Date Diagnosed Date [...] as of this encounter (statuses as of 08/26/2024) Resolved Problems Problem Noted Date Diagnosed Date Resolved Date Lumbar degenerative disc disease 12/10/2017 02/16/2023 Body mass index (BMI) of 45. 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 Not on file Not on file documented as of this encounter Miscellaneous Notes * Telephone Encounter - Nishi Espino SHEY - 08/26/2024 9:24 AM EST Care Gaps Comprehensive Care Outreach Last Office/Telemedicine Visit: 04/04/2024 (in office), Visit date not found (telemedicine) Next Office Visit: 09/05/2024 Hemoglobin AIC Results: Lab Results Component Value Date/Time HEMOGLOBIN A1C - [facility] 5.4 04/04/2024 02:54 PM HEMOGLOBIN A1C - [facility] 5.2 12/28/2017 09:17 AM BP Readings from Last 1 Encounters: 05/04/24 112/82 Reviewed Health Maintenance below: Health Maintenance Topic Date Due Pneumococcal Vaccine: Pediatrics (0 to 5 Years) and At-Risk Patients (6 to 64 Years) (1 of 2 - PCV)Never done Hepatitis C Screening Never done Hepatitis B Vaccine (1 of 3 - 19+ 3-dose series) Never done Zoster Vaccines (1 of 2) Never done Depression Screening 04/22/2022 DTap/Tdap Vaccines (2 - Td or Tdap) 04/03/2024 Influenza Vaccine (FLU shot) (1) Never done COVID-19 Vaccine ( - season) Never done Cervical Cancer Screening 08/12/2024 pap Care Gap Outreach Action Taken: [facility] message sent documented in this encounter Plan of Treatment Upcoming Encounters Date Type Department Care Team (Late st Contact Info) Description 09/05/2024 11:00 AM EST Office Visit [facility] [address] [facility] [place] [address] Lauren Lawrence MD [address] [facility] [place] [address] 10/17/2024 11:40 AM EST Office Visit [facility] [address] [facility] [place] [address] Lauren Lawrence MD [address] [facility] [place] [address] Scheduled Procedures Name Priority Associated Diagnoses Date/Ti [...] or Tdap) 04/03/2024 04/03/2014 COVID-19 Vaccine ( season) 2024 Influenza Vaccine (FLU shot) (#1) [...] Not on filedocumented as of this encounter Care Teams Position Description Manager Relationship Specialty Start Date End Date Lauren Lawrence MD [address] [place] [address] PCP - General Family Medicine 04/04/24 documented as of this encounter
--- OUTSIDE RECORDS SUMMARY | 2024-09-21 12:32 | External Medical Summary | Summary of Care ---
Author Name Unknown Organization [facility] Address [address] [place] [address] Phone [phone] Care Team Providers Care Body Engineer Name Role Phone Lauren Lawrence MD Primary Care Provider [phone] Encounter Details Date Type Department Care Team (Late st Contact Info) Description 08/29/2024 Orders Only [facility] [address] [place] [address] Sharon Somers CHRA [employer] [facility] Other*[id number] Allergies No known active allergiesdocumented as of this encounter (statuses as of 08/29/2024) Medications Naproxen Sodium 220 MG Oral Tablet Take 1 Tablet by mouth every 8 hours as needed for Pain. Active Acetaminophen ER 650 MG Oral Tablet Extended Release Take 1 Tablet by mouth every 8 hours as needed. Active documented as of this encounter (statuses as of 08/29/2024) Active Problems Problem Noted Date Diagnosed Date [...] as of this encounter (statuses as of 08/29/2024) Resolved Problems Problem Noted Date Diagnosed Date Resolved Date Lumbar degenerative disc disease 12/10/2017 02/16/2023 Body mass index (BMI) of 45. 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 Not on file Not on file documented as of this encounter Plan of Treatment Upcoming Encounters Date Type Department Care Team (Late st Contact Info) Description 09/05/2024 11:00 AM EST Office Visit Family Practice [facility] [place] [address] [place] [address] Lauren Lawrence MD [address] [place] [address] 10/17/2024 11:40 AM EST Office Visit [facility] [place] [facility] [place] [address] [place] [address] Lauren Lawrence MD [address] [place] [address] Scheduled Orders Name Type Priority Associated Diagnoses Orde r Schedule MYCODE SUBSEQUENT ADULT Lab Routine [employer] Other*[id number] Every 6 Months for 2 Occurrences starting 08/29/2024 until 09/18/2025 Scheduled Procedures Name Priority Associated Diagnoses Date/Ti [...] Additional history exists Lipid Panel 04/04/2029 04/04/2024, 0502/2023, 11/07/2019, Additional history exists Lung Cancer Screening Completed 12/15/2022, 022 HPV (Gardasil) Vaccine Aged Out No lo nger eligible based on patient's age to complete this topic MENINGOCOCCAL (MENACTRA/MENVEO) Aged Out No longer eligible based on patient's age to complete this topic documented as of this encounter Medical Devices Not on filedocumented as of this encounter Visit Diagnoses Diagnosis [employer] [facility] Other*[id number] documented in this encounter Care Teams Body Engineer Relationship Specialty Start Date End Date Lauren Lawrence MD [address] [place] [address] PCP - General Family Medicine 04/04/24 documented as of this encounter
--- OUTSIDE RECORDS SUMMARY | 2024-09-21 12:32 | External Medical Summary | Summary of Care ---
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 Not on file Not on file documented as of this encounter Plan of Treatment Upcoming Encounters Date Type Department Care Team (Late st Contact Info) Description 09/05/2024 11:00 AM EST Office Visit [facility] [place] [address] [place] [address] [address] Lauren Lawrence MD [address] [place] [address] 10/17/2024 11:40 AM EST Office Visit [facility] [place] [address] [place] [address] Lauren Lawrence MD [address] [place] [address] Scheduled Procedures Name Priority Associated Diagnoses Date/Ti [...] Additional history exists Lipid Panel 04/04/2029 04/04/2024, 05/1 02/2023, 11/07/2019, Additional history exists Lung Cancer Screening [...] Procedure Name Priority Date/Time Associated Diagnosis Comments EKG SCANNED RESULT 08/22/2024 documented in this encounter Results * EKG SCANNED RESULT (08/22/2024) 08/22/2024 us No Physician Data Unknown EKG Final Result documented in this encounter Care Teams Branch Maker Relationship Specialty Start Date End Date Lauren Lawrence MD [address] [place] [address] PCP - General Family Medicine 04/04/24 documented as of this encounter
[2024-09-21] MEDS ORDERED: HYDROmorphone INJ 0.5 MG/0.5 ML SYR IV PRN (12:49)
[2024-09-21] MEDS ORDERED: NALOXONE HCL 0.4 MG/1 ML VIAL/CARP IV PRN (12:49)
[2024-09-21] MEDS ORDERED: bisacodyL 10 MG SUPP PR PRN (12:49)
[2024-09-21] MEDS ORDERED: MAGNESIUM HYDROXIDE SUSP 30 ML UDC PO PRN (12:49)
[2024-09-21] MEDS ORDERED: diphenhydrAMINE 50 MG/ML VIAL IV PRN (12:49)
[2024-09-21] MEDS ORDERED: HYDROmorphone INJ 1 MG/ML SYRINGE IV PRN (12:49)
[2024-09-21] MEDS: KETOROLAC TROMETHAMINE 15 MG/ML VIAL IV SCH (14:24)
[2024-09-21] MEDS: ACETAMINOPHEN 500 MG TAB PO SCH (14:24)
--- NOTE | 2024-09-21 14:54 | Orthopedic Progress Note ---
Date of Service September 21, 2024 Assessment & Plan Admission and Anticipated Discharge Date Admission Date: September 21, 2024 Orthopedic Progress Note Postop check on the floor. Patient is awake and alert denies chest pain shortness of breath fever chills nausea vomiting or headache. Vital signs are stable she is afebrile. Neurovascular check femoral sciatic nerve is normal. She do ankle pumps she can do straight leg raise. Wound dressing clean dry and intact. Postop x-rays look excellent. Assessment doing well continue care pathway get up move around with knee immobilizer IV is Hep-Lock she is eating well. Prepare for discharge tomorrow.
[2024-09-21] MEDS: oxyCODONE HCL IR 5 MG TAB (IMMEDIATE RELEASE) PO PRN (16:38)
[2024-09-21] MEDS: ceFAZolin 2000MG 2,000 MG/15 ML SYR IV SCH (17:07)
[2024-09-21] MEDS: ONDANSETRON INJ 2 MG/ML 2 ML VIAL IV PRN (19:22)
[2024-09-21] MEDS: DOCUSATE SODIUM 100 MG CAP PO SCH (21:13)
[2024-09-21] MEDS: SENNA 8.6 MG TAB PO SCH (21:13)
--- NOTE | 2024-09-22 06:35 | Orthopedic Progress Note ---
Date of Service September 22, 2024 Assessment & Plan Admission and Anticipated Discharge Date Admission Date: September 21, 2024 Orthopedic Progress Note Postop day 1 status post left total knee replacement. Patient sitting up in bed. As she is comfortable. She complains mostly of tourniquet pain.. She denies chest pain shortness of breath fever chills nausea vomiting headache. Vital signs are stable she is afebrile. Neurovascular check femoral sciatic nerve is intact. A little more stiff with doing straight leg raise today. Wound dressing clean dry and intact. Calves nontender. Assessment doing well plan is to discharge to home today. Will need appropriate bulky dressing based on leg size center for support edema. Initiate Eliquis today. Would have her return in a week for wound check based on her size.
[2024-09-22 07:15] VITALS: BP 112/70; PULSE 63; RESP 18; TEMP 98.2; O2SAT 94
[2024-09-22 08:21] LABS: Hematocrit (blood only) 35.8 % (37.0-47.0); Mean Corpuscular Hemoglobin 31.1 pg (25.0-34.0); Mean Corpuscular Hgb Conc 33.5 g/dL (32.0-36.0); Mean Corpuscular Volume 92.7 fL (80.0-100.0); Mean Platelet Volume 10.4 fL (9.4-12.4); Platelet Count 242 K/uL (130-400); RDW Coefficient of Variation 12.9 % (11.5-14.5); RDW Standard Deviation 43.9 fL (36.4-46.3); Red Blood Count 3.86 M/uL (4.20-5.40); White Blood Count 8.77 K/ul (4.8-10.8)
[2024-09-22 08:30] LABS: BUN Creatinine Ratio 14.3 (10-20); Calcium 8.7 mg/dl (8.6-10.3); Creatinine Clr Calc Pharmacy 110.2 ml/min; Potassium 4.2 mmol/L (3.5-5.1)
[2024-09-22] MEDS: CeleBREX 200 MG CAP PO SCH (09:51)
[2024-09-22] MEDS: APIXABAN 2.5 MG TAB PO SCH (09:51)
[2024-09-22] MEDS: MULTIVITAMIN TAB PO SCH (09:51)
[2024-09-22] MEDS: dexAMETHasone 4 MG TAB PO SCH (10:27)
--- NOTE | 2024-09-22 10:57 | Orthopedic Progress Note ---
Date of Service September 22, 2024 Assessment & Plan (1) Status post left knee replacement: Plan: The patient was educated regarding today's findings. New bulky dressing was applied by me using gauze, 3 ABDs, and 3 Kerlix. She understands the restriction for the knee immobilizer when out of bed today and tomorrow. It can be discontinued entirely on Thursday. Continue using the walker. Ice and elevate the knee frequently to reduce pain and swelling. Start her Eliquis today in the hospital. Continue this evening and for the next 4 weeks. Prescriptions were sent to her pharmacy. She will have 2 weeks of home health and then report for outpatient PT. Admission and Anticipated Discharge Date Admission Date: September 21, 2024 Subjective This 54-year-old female is seen today in her room. She is 1 day status post left knee total knee arthroplasty with Dr. Torres. She states she is doing well. She has minimal pain. She has not been using any pain medication. She is waiting for therapy. She would like to go home today. No additional complaints. She states her knee does not hurt at all and she is pleased. Review of Systems Review of Systems: Unchanged from yesterday. Physical Exam Physical Exam: General: Well-developed, well-nourished, middle-aged female, in no acute distress. Laying in bed. Alert and oriented. Skin: Warm dry with good turgor. No rashes. No ecchymosis. She has a large postsurgical bulk dressing in place on her left leg. Upon removal, benjamin are in place. Wound edges are well-approximated. No erythema or warmth. No drainage. There is scant dried blood on her most inner dressing and it is otherwise dry. Expected postoperative edema after knee. Musculoskeletal: Left leg evaluation reveals a large extremity. She is able to set her quad. She has some difficulty doing a straight leg raise. She is able to actively dorsiflex her foot and has motor function intact to the toes. Neurologic: Gross sensation is intact across the right and left legs by soft touch. Peripheral pulses are 2+. Results & Data Vital Signs (Past 12 Hours) Vital Signs Temp Pulse Pulse Resp BP Pulse Ox O2 Del Method 09/22/24 07:14 36.8 C 63 18 112/70 94 Room Air 09/22/24 03:27 37 C 61 16 116/77 97 Room Air
== END 2024-09-22 11:01 | disposition home health service (06) ==
LOC: 3E 06:37 → ASU 06:37

== ENCOUNTER 2025-03-22 06:35 | Observation (INO) ==
--- NOTE | 2025-03-13 10:39 | Anesthesiology Consultation ---
Date of Service March 13, 2025 Assessment & Plan (1) Encounter for pre-operative examination: Chart Review Chart Review: Acceptable Risk for Surgery (pending cardio clearance 03/14/25 and surgeon ordered PCP clearance ) and Patient NOT seen in Pre Admission Testing - Discussed preop EKG with Dr. Naqvi- recommends cardiac evaluation prior to surgery. Surgeon's office was able to get patient in with Dr. Rodgers 03/14/25- please fax cardiac optimization and EKG to Dr. Rodgers's office for review - Awaiting surgeon ordered PCP clearance (03/13/25 (S) - Check test AM DOS - Patient informed by nursing to stop Ozempic 7 days prior to surgery. Last dose of Ozempic scheduled 02/28/25. Will be off Ozempic x 22 days prior to DOS on 03/22/25 Patient is NOT an ideal OPJ candidate (currently 23 hour obs) -Infectious Disease screening: Per PAT nursing assessment on 03/13/25. No known infectious disease contacts in past 10 days or current infectious disease symptoms. No recent travel outside the country. Left TKA 09/21/24= Done under SAB L3-4 with 1 attempt Consults Requested cardiac (abnormal EKG ) History Surgery Operation Date: 03/22/25 07:00 Proposed Procedures p Right Total Knee Arthroplasty - Bobo Torres MD Height/Weight Height: 5 ft 8 in Weight: 127.459 kg Allergies Allergy/AdvReac Type Severity Reaction Status Date / Time No Known Allergies Allergy Verified 03/13/25 09:46 Medications Home Medications Medication Instructions Recorded Confirmed Last Taken acetaminophen 325 mg tablet 650 mg PO QID PRN Pain 08/15/24 03/13/25 09/13/24 ibuprofen 200 mg tablet 400 mg PO Q6H PRN Pain 03/13/25 03/13/25 Unknown naproxen sodium 220 mg tablet 220 mg PO BID PRN Pain 03/13/25 03/13/25 Unknown (Aleve) semaglutide 1 mg/dose (4 mg/3 mL) 1 mg subcut Q7D 03/13/25 03/13/25 Unknown subcutaneous pen injector (Ozempic) Past Medical History Medical History Hearing loss [id number] TM from infection years ago History of hypertension controlled, stable per pt Hx of deep venous thrombosis (~2014) 2015 right LE, 2 days after hammer toe correction, had also flown 2 weeks prior Hx of diverticulitis of colon one episode-2015 Obesity reason for ozempic Past Surgical History Surgical History History of total left knee replacement 09/21/24, [facility] Hx of cholecystectomy Hx of colonoscopy Hx of hammer toe correction right Hx of tonsillectomy Hx of wisdom tooth extraction Social History Smoking Status: Current every day smoker Smoking cigarettes per day: 20 Do You Dip or Chew Tobacco: No Hx Alcohol Use: Yes (very rare, ~1x/6 months) Hx Substance Use: Yes substance use type: former substance user and marijuana Last Used Substance Other:: tried once only, "not a good thing" Lab Results Anesthesia Preop Results Results Anesthesia Widget: WBC 7.86 K/ul (4.8-10.8) 03/06/25 Hgb 13.4 g/dl (12.0-16.0) 03/06/25 Hct 40.2 % (37.0-47.0) 03/06/25 Plt 285 K/uL (130-400) 03/06/25 Na 139 mmol/L (136-145) 03/06/25 K 3.9 mmol/L (3.5-5.1) 03/06/25 Cl 105 mmol/L (98-107) 03/06/25 CO2 28 mmol/L (21-32) 03/06/25 BUN 11 mg/dl (6-23) 03/06/25 Creat 0.85 mg/dl (0.6-1.2) 03/06/25 Glucose Level 73 mg/dl (70-99(Fasting)) 03/06/25 PT 10.3 Seconds (9.0-12.0) 03/06/25 PTT 27 Seconds (21-31) 03/06/25 INR 0.9 (0.9-1.1) 03/06/25 Urine Color Yellow 03/06/25 Urine Appearance Clear (Clear) 03/06/25 Urine pH 5.0 (4.5-7.5) 03/06/25 Urine Specific [place] 1.006 (1.000-1.030) 03/06/25 Urine Protein Negative (Negative) 03/06/25 Urine Glucose (UA) Negative (Negative) 03/06/25 Urine Ketones Negative (Negative) 03/06/25 Urine Blood Negative (Negative) 03/06/25 Urine Nitrite Negative (Negative) 03/06/25 Urine Bilirubin Negative (Negative) 03/06/25 Urine Urobilinogen Negative (Negative) 03/06/25 Urine Leukocyte Esterase 1+ (Negative) H 03/06/25 Urine WBC (Auto) 11-20 /hpf (0-5) H 03/06/25 Urine RBC (Auto) 0-2 /hpf (0-2) 03/06/25 Urine Hyaline Casts (Auto) 3-5 /lpf (0-2) H 03/06/25 Urine Epithelial Cells (Auto) 6-10 /hpf (0-2) H 03/06/25 Urine Bacteria (Auto) 3+ (None Seen) H 03/06/25 Blood Type O Negative 03/06/25 Antibody Screen NEGATIVE 03/06/25 Testing Laboratory Results 03/06/25= URINE CULTURE: Three types of organisms present, all moderate counts probable skin yaneth. (will leave to surgeon's discretion to review and determine how to proceed) Electrocardiogram Date: 03/06/25 Unusual P axis, possible ectopic atrial rhythm at 64bpm When compared to EKG from Aug 22, 2024- ectopic atrial rhythm has replaced sinus rhythm per cardiology Chest X-Ray Date: 03/06/25 Findings: + NAD
--- NOTE | 2025-03-22 05:20 | History & Physical Bridge Note ---
Date of Service March 22, 2025 History & Physical Bridge Note I have examined the patient, reviewed the History & Physical and in the interval since the performance of the History & Physical I have noted the following changes of clinical significance:consent and site verified. no changes noted
[2025-03-22] MEDS ORDERED: BUPIVACAINE 0.5 % 5 MG/1 ML PF 10ML VIAL ONE (06:37)
[2025-03-22] MEDS ORDERED: EPINEPHrine INJ 1 MG/ML AMP ONE (06:37)
[2025-03-22] MEDS ORDERED: ROPIVACAINE 0.5% 5 MG/ML 30 ML VIAL ONE (06:38)
[2025-03-22] MEDS: LR 500ML BOLUS, THEN 15ML/HR IV SCH (07:14)
[2025-03-22] MEDS: LR 60ML/HR IV SCH (07:14)
[2025-03-22 07:18] LABS: Pregnancy Test, Serum Negative (Negative)
[2025-03-22] MEDS ORDERED: PROPOFOL IV EMULSION 10 MG/ML 20 ML VIAL IV ONE ×4 (07:25→10:38)
[2025-03-22] MEDS ORDERED: MIDAZOLAM HCL 1 MG/ML 2ML VIAL ONE ×2 (07:25→10:14)
[2025-03-22] MEDS ORDERED: LIDOCAINE 2% 2 ML VIAL/AMP(20MG/ML) INFIL ONE (07:25)
[2025-03-22] MEDS ORDERED: ONDANSETRON INJ 2 MG/ML 2 ML VIAL ONE (07:25)
[2025-03-22] MEDS ORDERED: DEXAMETHASONE SOD INJ 4 MG/ML VIAL ONE (07:25)
[2025-03-22] MEDS ORDERED: fentaNYL citrate PF 100 MCG/2 ML VIAL ONE (07:26)
[2025-03-22] MEDS: TRANEXAMIC ACID 1,000 MG **IV Pre-op IV SCH (09:10)
[2025-03-22] MEDS: ceFAZolin 3000MG 3,000 MG/72.5 ML BAG IV SCH (09:24)
[2025-03-22] MEDS: ORTHO JOINT ANESTHETIC ONE (09:56)
[2025-03-22] MEDS: ROPIV 0.5% 246mg, Ketorolac 30mg, EPINEPHrine 0.5mg in NSS INFIL SCH (09:57)
[2025-03-22] MEDS ORDERED: ePHEDrine sulfate 50 MG/ML AMP ONE (10:02)
[2025-03-22] MEDS: TRANEXAMIC ACID 1,000 MG **IV Intra-op IV SCH (10:39)
--- NOTE | 2025-03-22 11:09 | Post Operative Brief Note ---
Immediate Post Op Note Date of Surgery March 22, 2025 Pre & Post Diagnosis Operation Date: 03/22/25 08:50 <No data on this case meets the specified criteria> Osteoarthritis right knee with varus deformity significant high BMI Postop diagnosis same I identified the patient and participated in the time-out.: Yes Procedure Operation Date: 03/22/25 08:50 <No data on this case meets the specified criteria> Cemented right total knee replacement modifier 22 based on BMI of 43 Surgeon Bobo Torres MD Forming Process Worker Lexii Estimated Blood Loss 20 Findings Consistent with Post-Op Diagnosis Severe osteoarthritis varus deformity Fluids 1500 cc Complications None
--- NOTE | 2025-03-22 11:13 | Operative Report ---
Post Operative Report Pre & Post Diagnosis Operation Date: 03/22/25 08:50 <No data on this case meets the specified criteria> Severe osteoarthritis right knee with marked varus thrust varus alignment postop diagnosis I identified the patient and participated in the time-out.: Yes Procedure Operation Date: 03/22/25 08:50 <No data on this case meets the specified criteria> Cemented right total knee replacement Surgeon Bobo Torres MD Gear Finisher Lexii Estimated Blood Loss 20 Findings Consistent with Post-Op Diagnosis Severe osteoarthritis with marked disease medial compartment patellofemoral compartment lateral compartment relatively well-preserved marked varus deformity Fluids 1500 cc Specimens Bone pathology Complications None Indications Severe pain failed conservative management Description of Procedure After the patient was appropriate notified site verified consent verified antibiotics confirmed to be given right lower extremity was prepped and draped use routine fashion. Due to the size of the patient she required a 44 tourniquet. Tourniquet was inflated to 275 mmHg for exsanguination limb with a rubber band for total of 59 minutes. Patient is a high BMI patient of 43 and this is a modifier 22 case and required 2 extra set of hands 1 from nursing and 1 from the fellow in order to provide appropriate retraction and support of the leg during the case due to the size and weight of the leg. Midline incision was made full-thickness flaps raised the subcutaneous tissue was quite thick. The joint was opened through parapatellar arthrotomy and the tightness of the retinaculum was released internally and the patella was everted and the synovium was excised knee was flexed there were huge osteophytes along the margin of the femur and and the medial tibia these were all removed. The distal femur was then entered. The cruciates were resected. The tibia was subluxated the menisci resected. Distal femur resected 10 mm proximal tibia 4 mm the extension gap was excellent. Femur was sized to a 6 appropriate cutting block applied the anterior posterior, chamfer cuts made flexion gap was checked it was excellent box cut made a size 6 fit well the tibia was broached and reamed using revision tray due to her size and high BMI. Was a size 6. Appropriate reaming carried out to get a revision stem down. This was seated well. Trial reductions with a 6-8 poly revealed the 8 give a little bit more stability in extension. Did not remove any extension or flexion. The patella was then everted and resected leaving 14 mm a 35 button applied. It tracked well. Ortho mix was then injected all about the knee. Trial elements were removed the knee was soaked in Betadine for 2 minutes and then irrigated then the permanent cemented into position tibia femur patella in that order at 12 minutes the tourniquet was deflated at 14 minutes the knee was explored no cement removal was required. There was minimal bleeding. She received an additional dose of TXA prior to letting the tourniquet down. The trial spacer was removed the permanent seated and then the knee closed at 40 degrees of flexion using #2 Vicryl 2-0 Vicryl and standstill clips appropriate dressing a pplied the patient transferred to recovery in satisfactory descending tolerated procedure well. Nguyễn her was contacted [phone]. Summary of implants size 6 right femur size 6 revision tibia size 35 patella 6 x 8 mm poly. 2 bags of Palacos G cement. These are all [employer] systems. I attest to the content of the Intraoperative Record and any orders documented therein. Any exceptions are noted below.
--- NOTE | 2025-03-22 11:16 | Discharge Summary ---
Date of Service March 23, 2025 Admission HPI Per Admitting Provider Right knee pain marked varus varus thrust with x-rays revealing end-stage disease. Principal Diagnosis Severe osteoarthritis varus deformity right knee Discharge Data Allergies Allergy/AdvReac Type Severity Reaction Status Date / Time No Known Allergies Allergy Verified 03/22/25 06:58 Vaccinations None Consultations None Procedures Performed Operation Date: 03/22/25 08:50 Actual Procedures p Right Total Knee Arthroplasty, Cemented(Right) -modifier 22 due to high BMI and the need for multiple hands to retract and appropriately support the leg during the procedure. Bobo Torres MD Ordered Studies 03/22/25 05:00 US - OR guided needle placemen Routine Hospital Course (1) Status post right knee replacement: Plan Care plan for total knee replacement Total Time Total Time Spent Total Time Spent (In Minutes): 5 minutes Discharge Plan Discharge Items Reason For Visit: Right Knee Osteoarthritis Discharge Diagnosis: Status post right knee replacement Follow-up/Referrals: Lauren Lawrence MD [Primary Care Provider] - Addtl Attending Provider Instructions: DIET: * Resume previous diet. MEDICATIONS: * Please take your prescriptions as instructed at your pre-op appointment and/or see medication discharge instructions listed above. * If concerns develop, call your physician's office at . SPECIAL CARE INSTRUCTIONS: * Ice/Elevate as instructed. * Keep dressing clean, dry, intact. * Your surgical extremity may be discolored due to prepping agents used on the skin. A bluish-green tint is a normal variant and should not cause alarm. Call your doctor at [phone] if: * Temperature above 101 degrees * Pain not relieved by pain medicine ordered * There is increased drainage or redness from any incision * You have any unanswered questions, problems or concerns. FOLLOW UP VISIT: * If not already scheduled, please call the office at to schedule a follow-up appointment. Stand-Alone Forms: My [facility] Medications and DC Order Prescriptions: No Action acetaminophen 325 mg Tablet 650 mg PO QID PRN (Reason: Pain) naproxen sodium [Aleve] 220 mg Tablet 220 mg PO BID PRN (Reason: Pain) ibuprofen 200 mg Tablet 400 mg PO Q6H PRN (Reason: Pain) Ozempic 1 mg/dose (4 mg/3 mL) Pen Injector 1 mg SUBCUT Q7D Patient Comments: tuesdays Admission Data Admit Date/Time: 03/22/25 11:02 Attending Provider: Bobo Torres Admit Provider: Bobo Torres Primary Care Provider: Laurne Lawrence Other Providers: [facility]
--- NOTE | 2025-03-22 11:18 | Orthopedic Progress Note ---
Date of Service March 22, 2025 Orthopedic Progress Note Doing well status post right total knee replacement. Patient is doing well. Denies any chest pain shortness of breath fever chills nausea vomit headache. Vital signs are stable she is afebrile. X-ray pending. Continue care pathway. contacted.
--- NOTE | 2025-03-22 11:19 | Operative Report ---
Post Operative Report Pre & Post Diagnosis Operation Date: 03/22/25 08:50 Pre-Op Diagnosis: Right Knee Osteoarthritis Post-Op Diagnosis: Right Knee Osteoarthritis I identified the patient and participated in the time-out.: Yes Procedure Operation Date: 03/22/25 08:50 Actual Procedures p Right Total Knee Arthroplasty, Cemented(Right) - Bobo Torres MD Surgeon Bobo Torres MD Telephone Maintainer Lexii Estimated Blood Loss 20 Findings Consistent with Post-Op Diagnosis Specimens Right knee bone Description of Procedure Patient was brought to the operative suite where she underwent anesthesia. Right lower extremity was prepped and draped in the usual sterile fashion. Surgical timeout performed. Patient underwent a right total knee arthroplasty. Please see Dr. Torres's operative report for full details. I was present and assisted with patient positioning, limb positioning, soft tissue retraction, hemostasis, hardware implantation, wound closure, postoperative dressing placement. The patient was awakened taken the recovery room in stable condition. I attest to the content of the Intraoperative Record and any orders documented therein. Any exceptions are noted below.
[2025-03-22] MEDS ORDERED: VANCOMYCIN CONSULT ACTIVE PRN (11:34)
--- NOTE | 2025-03-22 11:42 | XRay Report ---
XR knee RT 1 or 2V routine CLINICAL HISTORY: S/P R TKA COMPARISON: 06/13/2024 FINDINGS: Right knee prosthesis shows no hardware complication. There is expected soft tissue gas. S kin benjamin are present anteriorly. IMPRESSION: Unremarkable postoperative exam. ACT 112: Negative or not required by law. Electronically signed by: Lino Lei M.D. 03/22/2025 11:41 AM
[2025-03-22] MEDS ORDERED: oxyCODONE HCL IR 5 MG TAB (IMMEDIATE RELEASE) PO PRN (12:49)
[2025-03-22] MEDS ORDERED: bisacodyL 10 MG SUPP PR PRN (12:49)
[2025-03-22] MEDS ORDERED: NALOXONE HCL 0.4 MG/1 ML VIAL/CARP IV PRN (12:49)
[2025-03-22] MEDS ORDERED: METOCLOPRAMIDE HCL INJ 5 MG/ML 2 ML VIAL IV PRN (12:49)
[2025-03-22] MEDS ORDERED: HYDROmorphone INJ 0.5 MG/0.5 ML SYR IV PRN (12:49)
[2025-03-22] MEDS ORDERED: HYDROmorphone INJ 1 MG/ML SYRINGE IV PRN (12:49)
[2025-03-22] MEDS ORDERED: ONDANSETRON INJ 2 MG/ML 2 ML VIAL IV PRN (12:49)
[2025-03-22] MEDS ORDERED: diphenhydrAMINE 50 MG/ML VIAL IV PRN (12:49)
[2025-03-22] MEDS ORDERED: MAGNESIUM HYDROXIDE SUSP 30 ML UDC PO PRN (12:49)
--- NOTE | 2025-03-22 13:07 | Anesthesiology Progress Note ---
Date of Service March 22, 2025 Anesthesia Post Procedure Vital Signs Vital Signs: Temp Pulse Pulse Resp BP Pulse Ox O2 Del Method 03/22/25 12:45 36.5 C 64 17 105/68 97 Room Air 03/22/25 12:30 36.6 C 61 17 110/67 93 Room Air 03/22/25 12:20 60 18 100/67 94 Room Air 03/22/25 12:10 59 L 18 110/68 92 Room Air 03/22/25 12:00 61 17 106/68 94 Room Air 03/22/25 11:50 60 17 101/65 93 Room Air 03/22/25 11:40 60 17 100/63 94 Room Air 03/22/25 11:30 62 17 104/60 98 Room Air 03/22/25 11:21 36.8 C 62 15 93/53 L 97 Room Air 03/22/25 06:59 36.7 C 60 20 116/77 97 Room Air Transfer of Care Handoff Completed per policy Notes Mental Status: alert / awake / arousable Patient Amnestic to Procedure: Yes Nausea / Vomiting: adequately controlled Pain: adequately controlled Airway Patency, RR, SpO2: stable & adequate BP & HR: stable & adequate Hydration State: stable & adequate Neuraxial Anesthesia: was administered and sensory block is resolving Anesthetic Complications: no major complications apparent
[2025-03-22] MEDS: ACETAMINOPHEN 500 MG TAB PO SCH (13:21)
[2025-03-22] MEDS: KETOROLAC TROMETHAMINE 15 MG/ML VIAL IV SCH (13:21)
[2025-03-22] MEDS: SODIUM CHLORIDE 0.9% 1,000 ML IV SCH (13:21)
--- NOTE | 2025-03-22 14:56 | Orthopedic Progress Note ---
Date of Service March 22, 2025 Assessment & Plan Admission and Anticipated Discharge Date Admission Date: March 22, 2025 Orthopedic Progress Note Postop check status post right total knee replacement. Patient sitting up in bed resting comfortably. Denies chest pain shortness of breath fever chills nausea vomiting headache. Vital signs are stable she is afebrile. Spinal is still having some effects on overall strength on both legs. But she does definite sciatic and femoral nerve function. Does not really get out of bed yet. Wound dressing clean dry and intact. Postop x-rays look excellent. Assessment overall doing well continue care pathway get her up out of bed with knee immobilizer for ambulation only when block is complete worn off. Hep-Lock IV when p.o. well. Initiate anticoagulation tomorrow.
[2025-03-22] MEDS: VANCOMYCIN HCL 2,500 MG in SODIUM CHLORIDE 0.9% 500 ML IV ONE (15:58)
[2025-03-22] MEDS: ceFAZolin 2000MG 2,000 MG/15 ML SYR IV SCH (16:02)
[2025-03-22 19:55] VITALS: RESP 16
[2025-03-22] MEDS: SENNA 8.6 MG TAB PO SCH (20:07)
[2025-03-22] MEDS: DOCUSATE SODIUM 100 MG CAP PO SCH (20:07)
[2025-03-23 04:04] VITALS: O2SAT 97
--- NOTE | 2025-03-23 07:03 | Orthopedic Progress Note ---
Date of Service March 23, 2025 Assessment & Plan Admission and Anticipated Discharge Date Admission Date: March 22, 2025 Orthopedic Progress Note Postop day #1 status post right total knee replacement. She is doing well. She denies chest pain shortness of breath fever chills nausea or headache. Vital signs are stable she is afebrile. Neurovascular check from sciatic nerve is normal. Can do a straight leg raise. Flexes easily to 70 degrees with bulky dressing. Calves nontender. Assessment doing well continue care pathway dressing change today prior to discharge initiate anticoagulation discharged home today after PT OT.
[2025-03-23 07:26] LABS: Hematocrit (blood only) 32.9 % (37.0-47.0); Mean Corpuscular Hemoglobin 30.2 pg (25.0-34.0); Mean Corpuscular Hgb Conc 33.4 g/dL (32.0-36.0); Mean Corpuscular Volume 90.4 fL (80.0-100.0); Platelet Count 252 K/uL (130-400); RDW Coefficient of Variation 13.7 % (11.5-14.5); RDW Standard Deviation 45.2 fL (36.4-46.3); Red Blood Count 3.64 M/uL (4.20-5.40); White Blood Count 11.27 K/ul (4.8-10.8)
[2025-03-23 07:42] VITALS: BP 106/68; PULSE 61; TEMP 97.5
[2025-03-23] MEDS: MULTIVITAMIN TAB PO SCH (07:43)
[2025-03-23] MEDS: APIXABAN 2.5 MG TAB PO SCH (07:44)
[2025-03-23] MEDS: dexAMETHasone 10 MG in SYRINGE 0 ML IV SCH (07:44)
[2025-03-23 07:51] LABS: BUN Creatinine Ratio 22.1 (10-20); Calcium 8.7 mg/dl (8.6-10.3); Creatinine Clr Calc Pharmacy 118.3 ml/min; Potassium 4.2 mmol/L (3.5-5.1)
== END 2025-03-23 11:10 | disposition home health service (06) ==
LOC: 3N 06:35 → ASU 06:35